=== PATIENT | male | born 1985 | race Caucasian/White ===

== ENCOUNTER 2016-12-05 15:28 | Emergency (ER) | payer SELFPAY ==
[~2016-12-05] VITALS: Ht 167.6 cm; Wt 58.0 kg
[2016-12-05 15:42] VITALS: BP 119/86
[2016-12-05] MEDS ORDERED: SODIUM CHLORIDE FLUSH 10ML SYR IVF ONE (16:00)
== END 2016-12-05 16:11 | disposition left against medical advice (07) ==
LOC: ED 16:05
DX: T40.1X1A Poisoning by heroin, accidental (unintentional), initial encounter (principal); F15.90 Other stimulant use, unspecified, uncomplicated; Y92.89 Other specified places as the place of occurrence of the external cause
CPT/HCPCS: 99284

== ENCOUNTER 2017-06-03 23:27 | Emergency (ER) | payer OTHER ==
[~2017-06-03] VITALS: Ht 170.2 cm; Wt 60.2 kg
[2017-06-03 23:31] VITALS: BP 114/74
== END 2017-06-04 01:48 | disposition home or self-care (01) ==
LOC: ED 23:59
DX: Z00.8 Encounter for other general examination (principal); Z72.9 Problem related to lifestyle, unspecified; Z88.8 Allergy status to other drugs, medicaments and biological substances
CPT/HCPCS: 99283